=== PATIENT | male | born 1965 | race Caucasian/White ===

== ENCOUNTER 2022-06-10 21:02 | Observation (INO) | payer SELFPAY ==
[2022-06-10] MEDS ORDERED: Aspirin 81 MG Tab.Chew PO ONE (21:10)
[2022-06-10] MEDS ORDERED: Sodium Chloride 0.9% 1,000 ML IV ONE (21:16)
[2022-06-10] MEDS: Nitroglycerin 0.4 MG Tab.SL SL PRN ×3 (21:24→21:35)
[2022-06-10 21:40] LABS: CARBON DIOXIDE,CO2 28.6 mmol/L (21.0-32.0); POTASSIUM,K 4.3 mmol/L (3.5-5.1)
[2022-06-10] MEDS ORDERED: Ketorolac 30 MG/ML SDV IVPUSH ONE (21:47)
[2022-06-10] MEDS ORDERED: Heparin Sodium 5,000 Units/ML Vial IVPUSH ONE (22:16)
[2022-06-10] MEDS ORDERED: Heparin Sodium/0.45% NaCl 500 ML IV STA (22:17)
[2022-06-10] MEDS ORDERED: Adenosine 6 MG/2 ML SDV IVPUSH ONE ×2 (22:38→22:39)
[2022-06-10] MEDS ORDERED: Diltiazem 25 MG/5 ML SDV IVPUSH ONE (22:49)
[2022-06-10] MEDS ORDERED: Midazolam 5 MG/ML SDV IVPUSH ONE (22:54)
[2022-06-10] MEDS: HYDROmorphone 2 MG/ML Syringe IVPUSH ONE ×2 (22:59→23:10)
[2022-06-10] MEDS ORDERED: LORazepam 2 MG/ML SDV IVPUSH ONE (23:46)
[2022-06-11] MEDS ORDERED: Pantoprazole 40 MG in Sodium Chloride 0.9% 10 ML IVPUSH ONE (00:10)
[2022-06-11] MEDS ORDERED: Iopamidol 755 MG/ML 500 ML Multipack Bottle IVPUSH ONE (00:20)
[2022-06-11] MEDS ORDERED: Heparin Sodium 5,000 Units/ML Vial IVPUSH ONE (05:39)
[2022-06-11 06:40] LABS: CARBON DIOXIDE,CO2 22.7 mmol/L (21.0-32.0); POTASSIUM,K 4.1 mmol/L (3.5-5.1)
[2022-06-11] MEDS ORDERED: Magnesium Sulfate/Water 2 GM in Premix Bag 1 BAG IV ONE (07:15)
[2022-06-11] MEDS ORDERED: cefTRIAXone 1 GM in Sodium Chloride 0.9% 50 ML IV SCH (08:30)
[2022-06-11] MEDS ORDERED: Azithromycin 500 MG in Sodium Chloride 0.9% 250 ML IV SCH (08:30)
[2022-06-11] MEDS ORDERED: Piperacillin/Tazobactam 3.375 GM in Sodium Chloride 0.9% 50 ML IV SCH (09:00)
[2022-06-11] MEDS ORDERED: Apixaban 5 MG Tab PO ONE (16:42)
== END 2022-06-11 17:45 | disposition left against medical advice (07) ==
LOC: MW.ED 21:02 → MW.MS 06-11 01:17
PROVIDERS: ADMIT Internal Medicine; ATTEND Internal Medicine
DX: I48.92 Unspecified atrial flutter (principal); J81.0 Acute pulmonary edema; J18.9 Pneumonia, unspecified organism; J43.2 Centrilobular emphysema; J98.11 Atelectasis; J81.1 Chronic pulmonary edema; F17.200 Nicotine dependence, unspecified, uncomplicated; Z20.822 Contact with and (suspected) exposure to COVID-19; Z79.01 Long term (current) use of anticoagulants; Z79.899 Other long term (current) drug therapy
CPT/HCPCS: 36415; 36600; 71045; 71275; 80048; 80053; 82803; 83690; 83735; 83880; 84443; 84484; 85025; 85379; 85730; 87040; 87077; 87154; 87186; 87635; 93005; A9270; C9113; J0153; J0456; J0696; J1644; J1885; J2060; J2250; J3475; J3490; J7030; J7050; Q9967; J1170; U0002

== ENCOUNTER 2022-06-20 10:25 | Inpatient (IN) | payer SELFPAY ==
[2022-06-20] MEDS ORDERED: Diltiazem 25 MG/5 ML SDV IVPUSH ONE (10:37)
[2022-06-20] MEDS ORDERED: Sodium Chloride 0.9% 1,000 ML IV ONE (10:56)
[2022-06-20] MEDS ORDERED: Diltiazem 100 MG in Sodium Chloride 0.9% 100 ML IV SCH ×2 (11:00→18:45)
[2022-06-20 11:26] LABS: BLOOD UREA NITROGEN,BUN 22 mg/dL (7.0-18.0); CARBON DIOXIDE,CO2 24.8 mmol/L (21.0-32.0); CHLORIDE,CL 103 mmol/L (98-107); GLUCOSE RANDOM 119 mg/dL (74-106); POTASSIUM,K 4.5 mmol/L (3.5-5.1); SODIUM,NA 139 mmol/L (136-148)
[2022-06-20 11:34] LABS: ESTIMATED GFR 44 mL/min (>60)
[2022-06-20] MEDS ORDERED: Digoxin 500 MCG/2 ML Amp IVPUSH ONE (12:22)
[2022-06-20] MEDS ORDERED: cefTRIAXone 1 GM in Sodium Chloride 0.9% 50 ML IV ONE (13:13)
[2022-06-20] MEDS ORDERED: Azithromycin 500 MG in Sodium Chloride 0.9% 250 ML IV ONE (13:13)
[2022-06-20] MEDS ORDERED: Diltiazem IR 30 MG Tab PO SCH (15:15)
[2022-06-20] MEDS ORDERED: Pantoprazole 40 MG in Sodium Chloride 0.9% 10 ML IVPUSH SCH (15:15)
[2022-06-20] MEDS ORDERED: Albuterol/Ipratropium 3.0-0.5 MG/3 ML Neb Soln NEB PRN (15:37)
[2022-06-20] MEDS ORDERED: Lactated Ringers 1,000 ML IV SCH (16:00)
[2022-06-20] MEDS: Diltiazem IR 30 MG Tab PO SCH ×2 (18:22→23:01)
[2022-06-20] MEDS ORDERED: Acetaminophen 500 MG Tab PO ONE (18:28)
[2022-06-20] MEDS: guaiFENesin 100 MG/5 ML Soln 5 ML UD Cup PO PRN (20:04)
[2022-06-20] MEDS: Apixaban 5 MG Tab PO SCH (20:04)
[2022-06-20] MEDS: Benzocaine/Cetylpyridinium/Menthol Lozenge MUCMEM PRN (21:59)
[2022-06-21] MEDS: guaiFENesin 100 MG/5 ML Soln 5 ML UD Cup PO PRN ×2 (01:59→08:40)
[2022-06-21] MEDS: Benzocaine/Cetylpyridinium/Menthol Lozenge MUCMEM PRN (02:10)
[2022-06-21] MEDS: Diltiazem IR 30 MG Tab PO SCH ×2 (05:31→11:34)
[2022-06-21 06:34] LABS: CARBON DIOXIDE,CO2 24.6 mmol/L (21.0-32.0); POTASSIUM,K 4.6 mmol/L (3.5-5.1)
[2022-06-21] MEDS: Apixaban 5 MG Tab PO SCH ×2 (08:40→20:35)
[2022-06-21] MEDS ORDERED: Diltiazem 25 MG/5 ML SDV IVPUSH ONE (12:28)
[2022-06-21] MEDS ORDERED: Digoxin 500 MCG/2 ML Amp IVPUSH ONE (12:28)
[2022-06-21] MEDS: Diltiazem IR 30 MG Tab PO ONE ×2 (13:07→13:48)
[2022-06-21] MEDS: cefTRIAXone 1 GM in Sodium Chloride 0.9% 50 ML IV SCH (13:10)
[2022-06-21] MEDS ORDERED: Benzonatate 100 MG Cap PO PRN (13:19)
[2022-06-21] MEDS: Azithromycin 500 MG in Sodium Chloride 0.9% 250 ML IV SCH (14:28)
[2022-06-21] MEDS: Furosemide 40 MG/4 ML VIAL IVPUSH SCH ×2 (14:29→20:35)
[2022-06-21] MEDS: Digoxin 500 MCG/2 ML Amp IVPUSH SCH ×2 (16:08→20:29)
[2022-06-21] MEDS ORDERED: Diltiazem IR 30 MG Tab PO SCH (18:00)
[2022-06-21] MEDS ORDERED: Amiodarone In Dextrose,Iso-Osm 150 MG in Premix Bag 1 BAG IV ONE ×2 (21:43)
[2022-06-22 06:32] LABS: CARBON DIOXIDE,CO2 29.6 mmol/L (21.0-32.0); POTASSIUM,K 4.5 mmol/L (3.5-5.1)
[2022-06-22] MEDS: Pantoprazole 40 MG Tab.CR PO SCH (08:32)
[2022-06-22] MEDS: Furosemide 40 MG/4 ML VIAL IVPUSH SCH (08:32)
[2022-06-22] MEDS: Apixaban 5 MG Tab PO SCH ×2 (08:32→21:00)
[2022-06-22] MEDS ORDERED: Polyethylene Glycol 3350 Powder 17 GM Packet PO PRN (08:38)
[2022-06-22] MEDS ORDERED: Metoprolol Tartrate 25 MG Tab PO SCH ×2 (10:20→14:00)
[2022-06-22] MEDS: cefTRIAXone 1 GM in Sodium Chloride 0.9% 50 ML IV SCH (12:25)
[2022-06-22] MEDS: Azithromycin 500 MG in Sodium Chloride 0.9% 250 ML IV SCH (13:10)
[2022-06-22] MEDS: Metoprolol Tartrate 25 MG Tab PO SCH ×2 (14:05→21:00)
[2022-06-22 22:41] LABS: CARBON DIOXIDE,CO2 30.9 mmol/L (21.0-32.0)
[2022-06-23] MEDS: Amiodarone 200 MG Tab PO SCH ×2 (02:07→12:28)
[2022-06-23 05:56] LABS: CARBON DIOXIDE,CO2 29.7 mmol/L (21.0-32.0); POTASSIUM,K 4.2 mmol/L (3.5-5.1)
[2022-06-23] MEDS: Metoprolol Tartrate 25 MG Tab PO SCH ×2 (06:32→14:04)
[2022-06-23] MEDS: Apixaban 5 MG Tab PO SCH ×2 (06:34→12:28)
[2022-06-23] MEDS ORDERED: Furosemide 40 MG Tab PO SCH (09:00)
[2022-06-23] MEDS ORDERED: Furosemide 40 MG/4 ML VIAL IVPUSH SCH (09:00)
[2022-06-23] MEDS ORDERED: Propofol 200 MG/20 ML SDV ONE (09:17)
[2022-06-23] MEDS ORDERED: fentaNYL 100 MCG/2 ML SDV ONE (09:18)
[2022-06-23] MEDS ORDERED: Midazolam 1 MG/ML 2 ML SDV ONE (09:18)
[2022-06-23] MEDS: Pantoprazole 40 MG Tab.CR PO SCH (12:29)
[2022-06-23] MEDS: Azithromycin 500 MG in Sodium Chloride 0.9% 250 ML IV SCH (14:02)
[2022-06-23] MEDS: cefTRIAXone 1 GM in Sodium Chloride 0.9% 50 ML IV SCH (14:03)
== END 2022-06-23 15:35 | disposition home or self-care (01) | DRG 308 ==
LOC: MW.ED 10:25 → MW.ICU 15:05 → MW.MS 06-21 11:54 → MW.ICU 06-21 21:38
PROVIDERS: ADMIT Internal Medicine; ATTEND Internal Medicine
PROC: 5A2204Z Restoration of Cardiac Rhythm, Single (ICD-10-PCS; principal; 2022-06-23)
DX: I48.91 Unspecified atrial fibrillation (principal); J18.9 Pneumonia, unspecified organism; N17.9 Acute kidney failure, unspecified; I50.9 Heart failure, unspecified; I48.92 Unspecified atrial flutter; F17.210 Nicotine dependence, cigarettes, uncomplicated; R00.0 Tachycardia, unspecified; I34.0 Nonrheumatic mitral (valve) insufficiency; E86.0 Dehydration; Z91.018 Allergy to other foods; Z88.8 Allergy status to other drugs, medicaments and biological substances; Z79.01 Long term (current) use of anticoagulants; Z79.899 Other long term (current) drug therapy
CPT/HCPCS: 00410; 36415; 71045; 71045-26; 80048; 80053; 80305-QW; 81003; 82330; 83735; 83880; 84100; 84439; 84443; 84484; 85025; 85610; 85730; 93005; 93306; A9270-GY; C9113; J0282; J0456; J0696; J1160; J1940; J2250; J2704; J3010; J3490; J7030; J7050; J7620-GY; U0002